=== PATIENT | female | born 1940 | race Caucasian/White ===

== ENCOUNTER 2018-06-10 11:10 | Emergency (ER) | payer OTHER ==
--- NOTE | 2018-06-10 12:47 | EDPHY ---
H & P Time Seen by Provider: 06/10/18 12:46 HPI/ROS: Chief complaint. Took too much medication this morning HPI. Patient is 77-year-old female with history of Parkinson's disease. She normally takes Sinemet 25-100 mg tablets using half tablet every 2 hr. Her laid the medication for the whole day out on the breakfast table and the patient accidentally took 6 pills which is her 24 hr dose. She initially had some lightheadedness and low blood pressure. Her symptoms are improving. No other complaints. She was not trying to harm herself. ROS Constitutional. Weakness and low blood pressure Eyes. no problems with vision ENT. no sore throat, no nasal drainage Cardiovascular. no chest pain Respiratory. no shortness of breath, no cough Abdominal. no abdominal pain, no nausea/vomiting, no diarrhea . no problems urinating MS. no calf pain/swelling, no neck/back pain, no joint pain Skin. no rash Lymph. no swollen glands Neuro. Some dizziness on standing Past Medical/Surgical History: Parkinson's disease Social History: , nonsmoker, no alcohol Smoking Status: Never smoked Physical Exam: General Appearance: Alert pleasant well-developed female mild distress vital signs initially show a blood pressure of 82/39 Eyes: Pupils equal and round no pallor or injection. ENT, Mouth: Mucous membranes are moist. Respiratory: There are no retractions, lungs are clear to auscultation. Cardiovascular: Regular rate and rhythm. Gastrointestinal: Abdomen is soft and nontender, no masses, bowel sounds normal. Neurological: Awake and alert, sensory and motor exams grossly normal. Skin: Warm and dry, no rashes. Musculoskeletal: Neck is supple nontender. Extremities symmetrical, full range of motion. Psychiatric: Patient is oriented X 3, there is no agitation. Constitutional: Initial Vital Signs Temperature (C) 36.3 C 06/10/18 11:15 Heart Rate 63 06/10/18 11:15 Respiratory Rate 16 06/10/18 11:15 Blood Pressure 82/39 L 06/10/18 11:15 O2 Sat (%) 93 06/10/18 11:15 O2 Delivery Mode Room Air Allergies/Adverse Reactions: No Known Allergies Allergy (Verified 06/10/18 11:11) Home Medications: Medication Instructions Recorded B+L Preservision Gel Cap 08/03/10 Biest 09/04/10 CITALOPRAM HBR 08/03/10 Enablex 08/03/10 FISH OIL CONCENTRATE 08/03/10 Folic Acid 08/03/10 LEVOXYL 08/03/10 Miralax 08/03/10 Mvi 08/03/10 NIASPAN 08/03/10 OMEPRAZOLE 08/03/10 Probiotic 08/03/10 SINEMET 25-100 MG TABLET 08/03/10 Simvastatin 08/03/10 Medical Decision Making ED Course/Re-evaluation: Patient is observed. Serial evaluations show improvement of blood pressure. Currently 141/57. Patient without symptoms. Poison Control contacted and discussed case with the chemical research worker. Case # [id number] Differential Diagnosis: Syndrome at overdose that is accidental initially causing hypotension. Now resolved. Departure - Departure Disposition: Home, Routine, Self-Care Clinical Impression: Accidental medication overdose Qualifiers: Encounter type: initial encounter Qualified Code(s): T50.901A - Poisoning by unspecified drugs, medicaments and biological substances, accidental ( unintentional), initial encounter Condition: Good Instructions: Parkinson Disease (ED) Additional Instructions: Manufacturing Engineer Assembly recommends restarting her regular doses of Sinemet tomorrow. Return sooner for worsening symptoms. Recheck in 1 day for continuing symptoms Referrals: Faye Lincoln MD [Primary Care Provider] - 1 day, if not improved
[2018-06-10 13:10] VITALS: BP 154/69
== END 2018-06-10 13:45 | disposition home or self-care (01) ==
DX: R42 Dizziness and giddiness (principal); T45.1X5A Adverse effect of antineoplastic and immunosuppressive drugs, initial encounter; G20 Parkinson's disease

== ENCOUNTER → 2018-11-13 | Outpatient (CLI) | payer OTHER | LOC: FIMAGING 10:13 | DX: M50.31 Other cervical disc degeneration, high cervical region (principal); M46.92 Unspecified inflammatory spondylopathy, cervical region; Z96.89 Presence of other specified functional implants ==